=== PATIENT | female | born 1940 | race Caucasian/White ===

== ENCOUNTER 2022-05-20 14:54 | Emergency (ER) | payer OTHER ==
[~2022-05-20] VITALS: Ht 162.6 cm; Wt 50.8 kg
[~2022-05-20 14:54] MED LIST: ASPI81CH; Amlodipine Besyl5 MG PO; LISI20; LISI20 PO; MERIBIN5 MG PO; METO100ER; METO100ER PO; NITR.4SL SL; NITR.6SL; Nitrostat0.4 MG; SIMV10; SIMV10 PO; WARF5; WARF5 PO
[2022-05-20 15:13] VITALS: BP 144/101
== END 2022-05-20 16:40 | disposition home or self-care (01) ==
LOC: ER 14:54
DX: M54.42 Lumbago with sciatica, left side (principal); Z88.8 Allergy status to other drugs, medicaments and biological substances; Z79.899 Other long term (current) drug therapy; Z79.01 Long term (current) use of anticoagulants; Z87.891 Personal history of nicotine dependence; M25.552 Pain in left hip; M51.36 Other intervertebral disc degeneration, lumbar region
CPT/HCPCS: 72020; 73502; 99282; 99284-25; A9270

== ENCOUNTER 2023-10-06 15:16 | Emergency (ER) | payer OTHER ==
[~2023-10-06] VITALS: Wt 49.0 kg
[2023-10-06 15:28] VITALS: BP 162/126
[2023-10-06] MEDS ORDERED: HYDR1TAB94 PO (15:36)
== END 2023-10-06 15:40 | disposition home or self-care (01) ==
LOC: ER 15:16
DX: M25.511 Pain in right shoulder (principal); G89.29 Other chronic pain; W18.30XA Fall on same level, unspecified, initial encounter; Z87.891 Personal history of nicotine dependence; Z79.01 Long term (current) use of anticoagulants; Z79.899 Other long term (current) drug therapy; Z91.041 Radiographic dye allergy status
CPT/HCPCS: 99282